=== PATIENT | male | born 1955 | race Caucasian/White ===

== ENCOUNTER 2022-08-11 11:02 | Emergency (ER) | payer OTHER ==
[~2022-08-11] VITALS: Ht 172.7 cm; Wt 84.1 kg
[2022-08-11 11:14] VITALS: BP 155/95
[2022-08-11] MEDS ORDERED: normal saline 1000ML IV soln IV ONE (12:25)
[2022-08-11] MEDS ORDERED: acetaminophen 325mg tablet PO STA (12:41)
[2022-08-11 13:52] LABS: BASOPHILS % (AUTO) 0.3 % (0-1); EOSINOPHILS % (AUTO) 0 % (0-6); HEMATOCRIT 41.3 % (42.0-52.0); LYMPHOCYTES % (AUTO) 20.7 % (21-51); MEAN CORPUSCULAR VOLUME 94.2 FL (78-98); MEAN PLATELET VOLUME 8.9 FL (7.4-10.4); MONOCYTES # (AUTO) 0.7 X10'3 (0-0.9); MONOCYTES % (AUTO) 13.5 % (2-12); NEUTROPHILS # (AUTO) 3.3 X10'3 (1.8-7.7); NEUTROPHILS % (AUTO) 65.5 % (42-75); PLATELET COUNT 125 X10'3 (140-440); RED BLOOD COUNT 4.39 X10'6 (4.70-6.10); RED CELL DISTRIBUTION WIDTH 13.2 % (11.5-14.5)
[2022-08-11 14:08] LABS: CLARITY,URINE CLEAR (Clear); COLOR,URINE YELLOW (Yellow); GLUCOSE, URINE NEGATIVE (Neg); KETONES,URINE >=80 mg/dl (Neg); LEUKOCYTE ESTERASE ,URINE NEGATIVE (Neg); NITRITES, URINE NEGATIVE (Neg); OCCULT BLOOD,URINE TRACE-INTACT (Neg); PH,URINE 5.5 (4.8-8.0); PROTEIN,URINE 100 mg/dl (Neg)
[2022-08-11 14:16] LABS: UA COLLECTION TYPE CLN CATCH MIDSTREAM
[2022-08-11 14:23] LABS: TRANSITIONAL EPI CELLS,URINE FEW /HPF
[2022-08-11 14:24] LABS: MUCUS STRANDS FEW /LPF (Neg); SQUAMOUS EPITHELIAL CELL,UR FEW /LPF (FEW)
[2022-08-11 14:25] LABS: COARSE GRANULAR CAST 0-3 /LPF (NEGATIVE)
[2022-08-11 14:26] LABS: ALANINE AMINOTRANSFERASE 359 U/L (12-78); ALBUMIN 3.4 G/DL (3.4-5.0); ALBUMIN/GLOBULIN RATIO 0.8 (1.1-1.5); ALKALINE PHOSPHATASE 128 IU/L (46-116); ANION GAP 14 (8-16); ASPARTATE AMINO TRANSFERASE 181 U/L (10-37); BILIRUBIN,TOTAL 0.4 MG/DL (0.1-1.0); BLOOD UREA NITROGEN 9 MG/DL (7-18); BUN/CREATININE RATIO 8.8 (10.0-20.0); CHLORIDE 93 MMOL/L (99-107); CREATININE 1.02 MG/DL (0.60-1.10); GLUCOSE 91 MG/DL (70-104); LIPASE 52 U/L (73-393); POTASSIUM 3.5 MMOL/L (3.5-5.1); SODIUM 130 MMOL/L (135-145); TOTAL PROTEIN 7.6 G/DL (6.4-8.2); eGFR 73 ML/MIN
[2022-08-11 14:26] LABS: BACTERIA,URINE 1+ /HPF (Neg); WBC,URINE 0-4 /HPF (0-4)
[2022-08-11 14:32] LABS: FINE GRANULAR CAST 0-3 /LPF (NEGATIVE)
[2022-08-11 14:36] LABS: CALCIUM 8.9 MG/DL (8.5-10.1)
[2022-08-11] MEDS ORDERED: famotidine/PF 10 mg/ml inj IV ONE (14:50)
[2022-08-11] MEDS ORDERED: ketorolac trometh. 30mg/ml inj. IV ONE (14:50)
== END 2022-08-11 15:47 | disposition home or self-care (01) ==
LOC: ER 11:03
DX: R50.9 Fever, unspecified (principal); R11.2 Nausea with vomiting, unspecified; R74.01 Elevation of levels of liver transaminase levels; R19.7 Diarrhea, unspecified
CPT/HCPCS: 36415; 74176; 80053; 81001; 83605; 83690; 84145; 85025; 87040; 96361; 96374; 96375; 99285; J1885; J3490; J7030; 76700